=== PATIENT | male | born 1950 | race Caucasian/White ===

== ENCOUNTER 2018-01-22 16:35 | Emergency (ER) | payer MEDICARE ==
[2018-01-22 17:11] LABS: Bilirubin Negative (Negative); Blood, Urine Negative (Negative); Clarity CLEAR (Clear); Glucose, Urine (Dipstick) Negative (Negative); Leukocyte Negative (Negative); Nitrite Negative (Negative); Protein, Urine (Dipstick) Negative (Neg-Trace); Specific Gravity, Urine 1.018 (1.002-1.036); pH, Urine 5.5 (5.0-9.0)
--- NOTE | 2018-01-22 19:26 | ULT ---
SCROTAL SONOGRAM WITH DUPLEX EVALUATION: 01/22/18 HISTORY: Left groin pain. FINDINGS: The right testicle is 4.1 cm in length and the left 4.0 cm. Each has a normal appearance with good co jihan and spectral doppler flow. Cyst at the left epididymal head measures up to 1.3 cm greatest diamet er. Left epididymal tail is slightly enlarged and hypervascular. IMPRESSION: 1. Mild left epididymitis. 2. No evidence of testicular mass or torsion. POS: [facility]
== END 2018-01-22 19:27 | disposition home or self-care (01) ==
LOC: ERS 16:35
DX: N45.1 Epididymitis (principal); G20 Parkinson's disease; G30.9 Alzheimer's disease, unspecified; F02.80 Dementia in other diseases classified elsewhere, unspecified severity, without behavioral disturbance, psychotic disturbance, mood disturbance, and anxiety; E78.00 Pure hypercholesterolemia, unspecified; F43.10 Post-traumatic stress disorder, unspecified; Z79.899 Other long term (current) drug therapy
CPT/HCPCS: 76870; 81003; 93976